=== PATIENT | male | born 1985 | race Caucasian/White ===

== ENCOUNTER 2018-06-14 16:23 | Emergency (ER) | payer OTHER ==
[2018-06-14] MEDS ORDERED: SODIUM CHLORIDE 0.9% 1,000 ML IV ONE (17:22)
[2018-06-14] MEDS ORDERED: LORazepam 2 MG/ML VIAL IVP STA (17:22)
--- NOTE | 2018-06-14 17:28 | ED Physician Documentation ---
History of Present Illness - Stated complaint Stated Complaint: CP/TINGLING - Chief complaint Chief Complaint: General - History obtained from History obtained from: Patient, Family - Additonal information Additional information: 32-year-old male presents the emergency department with chest pressure which started this afternoon. The patient's symptoms are associated with significant amount of increased stress in his life. Patient reports feeling very tearful anxious and depressed. The patient is denying suicidal or homicidal ideations. The patient denies dyspnea on exertion, URI symptoms, abdominal pain, vomiting or changes in his lifestyle. Symptoms are scribed as moderate. No radiation of symptoms. No other associated symptoms. No triggering factors. No relieving factors Review of Systems Constitutional: denies: Fever, Chills Eyes: denies: Decreased vision Ears: denies: Ear pain Nose: denies: Congestion Throat: denies: Sore throat Cardiac: reports: Chest pain / pressure Respiratory: denies: Dyspnea GI: denies: Abdominal Pain : denies: Dysuria Skin: denies: Rash Musculoskeletal: denies: Neck pain Neurologic: denies: Syncope Psychiatric: reports: Depressed, Anxiety. denies: Suicidal, Hallucinations Immunocompromised: denies: Chemotherapy PD PAST MEDICAL HISTORY - Past Medical History Past Medical History: Yes Respiratory: Asthma - Past Surgical History Past Surgical History: No - Present Medications Home Medications: Ambulatory Orders Medication Instructions Recorded Confirmed Albuterol 06/14/18 Fluticasone/Salmeterol [Advair 06/14/18 100-50 Diskus] Ibuprofen 06/14/18 06/14/18 - Allergies Allergies/Adverse Reactions: Allergies Allergy/AdvReac Type Severity Reaction Status Date / Time No Known Drug Allergies Allergy Verified 06/14/18 16:34 - Social History Does the pt smoke?: No Smoking Status: Never smoker Does the pt drink ETOH?: Yes Does the pt have substance abuse?: No - Immunizations Immunizations are current?: Yes PD ED PE NORMAL - General General: Alert and oriented X 3, No acute distress, Well developed/nourished - HEENT HEENT: Atraumatic, PERRL, EOMI, Ears normal - Neck Neck: Supple, no meningeal sign - Cardiac Cardiac: RRR, No gallop - Respiratory Respiratory: No respiratory distress, Clear bilaterally - Abdomen Abdomen: Normal bowel sounds, Non tender - Extremities Extremities: No deformity, No edema - Neuro Neuro: Alert and oriented X 3, Normal speech - Psych Psych: Normal mood Results - Vitals Vitals: Vital Signs - 24 hr 06/14/18 06/14/18 06/14/18 16:29 17:59 18:58 Temperature 36.3 C L Heart Rate 58 L 55 L 58 L Respiratory 18 17 16 Rate Blood Pressure 143/92 H 137/84 H 119/76 O2 Saturation 98 98 100 06/14/18 20:08 Temperature 36.6 C Heart Rate 55 L Respiratory 16 Rate Blood Pressure 130/96 H O2 Saturation 100 Oxygen O2 Source Room air - EKG (time done) No standard instances Rhythm: NSR Intervals: Normal CO, QRS normal Ischemia: Non specific changes - Labs Labs: Laboratory Tests 06/14/18 06/14/18 06/14/18 17:37 17:37 17:37 WBC 6.7 RBC 4.97 Hgb 14.9 Hct 44.1 MCV 88.8 MCH 30.1 MCHC 33.9 RDW 13.3 Plt Count 246 MPV 7.7 Neut # (Auto) 3.7 Lymph # (Auto) 2.1 Morrill # (Auto) 0.5 Eos # (Auto) 0.2 Baso # (Auto) 0.1 Absolute Nucleated RBC 0.00 Nucleated RBC % 0.1 D-Dimer Sodium 141 Potassium 4.2 Chloride 106 Carbon Dioxide 29 Anion Gap 6.0 BUN 21 H Creatinine 0.8 Estimated GFR (MDRD) 114 Glucose 97 Calcium 9.2 Magnesium 2.0 Total Bilirubin 0.8 AST 21 ALT 18 Alkaline Phosphatase 47 Troponin I 0.04 Total Protein 7.6 Albumin 4.7 Globulin 2.9 Albumin/Globulin Ratio 1.6 Lipase 29 06/14/18 06/14/18 17:37 19:25 WBC RBC Hgb Hct MCV MCH MCHC RDW Plt Count MPV Neut # (Auto) Lymph # (Auto) Morrill # (Auto) Eos # (Auto) Baso # (Auto) Absolute Nucleated RBC Nucleated RBC % D-Dimer < 200.0 L Sodium Potassium Chloride Carbon Dioxide Anion Gap BUN Creatinine Estimated GFR (MDRD) Glucose Calcium Magnesium Total Bilirubin AST ALT Alkaline Phosphatase Troponin I 0.04 Total Protein Albumin Globulin Albumin/Globulin Ratio Lipase - Rads (name of study) CXR Radiology: Final report received, See rad report PD MEDICAL DECISION MAKING - ED course ED course: The patient's symptoms may be secondary to his increasing anxiety and depression. The patient's workup in the emergency department does not reveal any significant abnormality that would necessitate admission to the hospital for further workup. The patient appears appropriate for discharge and follow- up with primary care. The patient's family and patient understand and agree to plan. I discussed warning signs and recommended returning to the emergency department for worsening or concerns. - Sepsis Event Vital Signs: Vital Signs - 24 hr 06/14/18 06/14/18 06/14/18 16:29 17:59 18:58 Temperature 36.3 C L Heart Rate 58 L 55 L 58 L Respiratory 18 17 16 Rate Blood Pressure 143/92 H 137/84 H 119/76 O2 Saturation 98 98 100 06/14/18 20:08 Temperature 36.6 C Heart Rate 55 L Respiratory 16 Rate Blood Pressure 130/96 H O2 Saturation 100 Oxygen O2 Source Room air Departure - Departure Disposition: 01 Home, Self Care Clinical Impression: Chest pain Qualifiers: Chest pain type: unspecified Qualified Code(s): R07.9 - Chest pain, unspecified Condition: Good Instructions: ED Chest Pain [facility] Comments: Please follow-up with your primary care physician for further workup and management of your symptoms. Please return to the emergency department for worsening symptoms or any concerns
[2018-06-14 17:43] LABS: BASOPHILS # (AUTO) 0.1 10^3/uL (0.0-0.1); BASOPHILS % (AUTO) 1.2 %; EOSINOPHILS # (AUTO) 0.2 10^3/uL (0.0-0.7); EOSINOPHILS % (AUTO) 2.7 %; HGB - HEMOGLOBIN 14.9 g/dL (14.0-18.0); LYMPHOCYTES # (AUTO) 2.1 10^3/uL (1.5-3.5); MEAN CORPUSCULAR HEMOGLOBIN 30.1 pg (27.0-31.0); MEAN CORPUSCULAR HGB CONC 33.9 g/dL (32.0-36.0); MEAN CORPUSCULAR VOLUME 88.8 fL (80.0-94.0); MEAN PLATELET VOLUME 7.7 fL (7.4-11.4); MONOCYTES # (AUTO) 0.5 10^3/uL (0.0-1.0); NEUTROPHILS # (AUTO) 3.7 10^3/uL (1.5-6.6); NEUTROPHILS % (AUTO) 56.1 %; PLT - PLATELET COUNT 246 10^3/uL (130-450); RED BLOOD COUNT 4.97 10^6/uL (4.70-6.10); RED CELL DISTRIBUTION WIDTH 13.3 % (12.0-15.0); WHITE BLOOD COUNT 6.7 x10^3/uL (4.8-10.8)
[2018-06-14 17:58] LABS: ALBUMIN 4.7 g/dL (3.2-5.5); ALBUMIN/GLOBULIN RATIO 1.6 (1.0-2.2); BILIRUBIN,TOTAL 0.8 mg/dL (0.2-1.0); CALCIUM 9.2 mg/dL (8.5-10.3); CREATININE 0.8 mg/dL (0.6-1.2); TOTAL PROTEIN 7.6 g/dL (6.7-8.2)
--- NOTE | 2018-06-14 18:00 | XRAY Report ---
Procedure Date: 06/14/2018 Accession Number: [id number] / [id number] Procedure: XR - Chest 2 View X-Ray CPT Code: 65401 FULL RESULT: EXAM: CHEST RADIOGRAPHY EXAM DATE: 06/14/2018 05:43 PM. CLINICAL HISTORY: Chest pain. COMPARISON: None. TECHNIQUE: 2 views. FINDINGS: Lungs/Pleura: No focal opacities evident. No pleural effusion. No pneumothorax. Normal volumes. Mediastinum: Heart and mediastinal contours are unremarkable. Other: None. IMPRESSION: Normal 2-view chest radiography. [facility]
[2018-06-14 20:09] VITALS: BP 130/96
== END 2018-06-14 20:30 | disposition home or self-care (01) ==
LOC: ED 16:23
DX: R07.9 Chest pain, unspecified (principal)
CPT/HCPCS: 36415; 71046; 80053; 83690; 83735; 84484; 85025; 85379; 93005; 96361; 96374; 99283; J2060